=== PATIENT | female | born 1965 | race Caucasian/White ===

== ENCOUNTER 2022-12-08 12:09 | Outpatient (CLI) | payer OTHER | END 2022-12-08 12:21 | disposition home or self-care (01) | LOC: MRI 12:09 | PROVIDERS: ATTEND Specialist | DX: S81.012A Laceration without foreign body, left knee, initial encounter (principal); T07.XXXA Unspecified multiple injuries, initial encounter | CPT/HCPCS: 73718 ==

== ENCOUNTER 2023-01-17 10:24 | Outpatient (CLI) | payer OTHER | END 2023-01-17 10:31 | disposition home or self-care (01) | LOC: RAD 10:24 | PROVIDERS: ATTEND Orthopaedic Surgery | DX: M25.551 Pain in right hip (principal); M25.552 Pain in left hip ==

== ENCOUNTER → 2023-01-17 | Outpatient (CLI) | payer OTHER | END | disposition home or self-care (01) | LOC: NUCLEAR 11:35 | PROVIDERS: ATTEND Physical Medicine & Rehabilitation | DX: M79.662 Pain in left lower leg (principal); Z98.890 Other specified postprocedural states ==